=== PATIENT | male | born 1965 | race Caucasian/White ===

== ENCOUNTER 2017-07-26 10:17 | Emergency (ER) | payer BC ==
[~2017-07-26] VITALS: Ht 182.9 cm; Wt 94.5 kg
[2017-07-26 10:19] VITALS: BP 119/79; PULSE 82; RESP 18; TEMP 98.3; O2SAT 98
--- NOTE | 2017-07-26 10:45 | PD ---
HPI Chief Complaint: right ankle pain Time Seen by Provider: 10:34 Travel History International Travel<30 days: No Contact w/Intl Traveler<30days: No History of Present Illness HPI So 52-year-old man who presents to the emergency department when of right ankle pain. Patient has a history of kidney transplant, some multiple medications, and has been told he had weak bones in the past. He's also had skin cancer radiation to the scalp in the past. Presents of right ankle pain is been ongoing for several weeks, pain is really on the distal anterior tibia. He says been doing a lot more the gym, or running, is worried he may have had a hairline fracture. He is able to bear weight. No other complaints. History Past Medical History Narrative Medical Status post kidney transplant, on immunosuppressive's History of skin cancer Hypertension Social History Tobacco Use: No Review of Systems General / Constitutional: No: Fever, Chills Musculoskeletal: Positive: Edema, No: Myalgias, Weakness, Cramping Physical Exam Narrative GENERAL: Well-appearing 52-year-old man, no acute distress. SKIN: Warm and dry. CARDIOVASCULAR: Warm and well perfused. RESPIRATORY: Normal rate and effort. MUSCULOSKELETAL: Right ankle is grossly normal appearance. There is a little bit of pitting edema both legs symmetric bilaterally. He is a little bit tenderness palpation over the distal anterior tibia. No obvious instability of the joint. Foot warm and well perfused. Good pulses. NEUROLOGICAL: Awake and alert. No gross deficits. Data Data Last Documented VS Vital Signs Date Time Temp Pulse Resp B/P (MAP) Pulse Ox O2 Delivery O2 Flow Rate FiO2 07/26/17 10:19 98.3 82 18 119/79 (92) 98 Room Air Orders Orders Ankle, Complete ([id number]) (07/26/17 ) [facility] Medical Decision Making Medical Screen Exam Complete: Yes Emergency Medical Condition: Yes Differential Diagnosis Hairline fracture, strain or sprain, elias splints, other Narrative Course Medical decision-making 52-year-old man presents emergent arm for right ankle pain. Initially anterior distal tibia. Is on steroids and has what sounds like significant osteoporosis. Possible occult or stress fracture. We'll check x-ray. Recommended Jb wrap, weight-bear as tolerated, outpatient orthopedic follow- up. Acetaminophen as needed for pain. Carroll Bobby MD Jul 26, 2017 10:45
--- NOTE | 2017-07-26 11:17 | RADRPT ---
EXAM DATE/TIME: 07/26/2017 10:50 [place] COMPARISON: No previous studies available for comparison. INDICATIONS : Right medial ankle pain , from walking on tread mill. MEDICAL HISTORY : None. SURGICAL HISTORY : None. ENCOUNTER: Initial ACUITY: 2 months PAIN SCORE: 9/10 LOCATION: Right ankle FINDINGS: Three view exam was performed of the right ankle. The bony structures are in normal alignment. No e vidence of fracture, dislocation, or soft tissue swelling. There is a well corticated fragment dista l to the tip of the lateral malleolus. The ankle mortise is intact. No radiopaque foreign bodies are seen. Bony mineralization is normal. CONCLUSION: Unremarkable examination of the right ankle. Carroll Koo MD on July 26, 2017 at 11:10 Board Certified Radiologist. This report was verified electronically.
--- NOTE | 2017-07-26 11:24 | PD ---
Data Data Last Documented VS Vital Signs Date Time Temp Pulse Resp B/P (MAP) Pulse Ox O2 Delivery O2 Flow Rate FiO2 07/26/17 10:19 98.3 82 18 119/79 (92) 98 Room Air Orders Orders Ankle, Complete ([id number]) (07/26/17 ) MDM Supervised Visit with DEMAR: No Narrative Course X-rays negative. Recommend supportive brace. Outpatient or throat follow-up. Diagnosis Primary Impression: Ankle pain, right Referrals: Giuseppe Norman MD call for appointment Additional Instruction: Weight-bear as tolerated. Gradually increase activity as you can tolerate pain- free. Follow-up with orthopedics if not completely well in one week. Disposition: 01 DISCHARGE HOME Condition: Stable Carroll Bobby MD Jul 26, 2017 11:24
[2017-07-26] MEDS ORDERED: TRAM50TA PO (11:34)
== END 2017-07-26 11:47 | disposition home or self-care (01) ==
LOC: NEPK 10:17
DX: M25.571 Pain in right ankle and joints of right foot (principal); M81.0 Age-related osteoporosis without current pathological fracture; I10 Essential (primary) hypertension; Z94.0 Kidney transplant status
CPT/HCPCS: 73610; 99283